=== PATIENT | male | born 1975 | race Caucasian/White ===

== ENCOUNTER 2017-03-06 11:27 | Emergency (ER) | payer MEDICAID ==
[~2017-03-06] VITALS: Ht 185.4 cm; Wt 117.0 kg
[~2017-03-06 11:27] MED LIST: BACTRIM DS 8001 TA1 PO; ETODOLAC400 MG PO; FLEXERIL10 MG PO; KEFLEX 500MG.500 MG PO; LORTAB 5/500 501 TAB PO; MEDROL 4MG. DOSE4 MG PO; MOTRIN600 MG PO; PERCOCET 325 MG1 TA3 PO; PERCOCET 5/3251 EACH PO; ULTRAM 50 MG TA50 MG PO; VICODIN 5/500 T1 TAB PO; VOLTAREN75 MG PO
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
--- OUTSIDE RECORDS SUMMARY | 2017-03-06 11:35 | External Medical Summary Rpt | CCD ---
Author Author , JAYLAN TIAN Address Unknown Phone [email or web address] Care Team Providers Care Machinist Brake Name Role Phone [employer], Unavailable Unavailable [employer] DIAGNOSTIC X-RAY Unavailable Unavailable PHYSICIA, DIAGNOSTIC X-RAY PHYSICIA NOMAN ARNDT Unavailable Unavailable [facility], Unavailable Unavailable [facility] Purpose Continuity of Care Document - 03-02-2014 through 2016 Problems Code Diagnosis DOS Provider Status F3289 OTHER 07-11-2016 [facility] SPECIFIED RG DEPRESSIVE EPISODES 7242 LUMBAGO 04-21-2014 DIAGNOSTIC X-RAY PHYSICIA 7862 COUGH 04-21-2014 DIAGNOSTIC X-RAY PHYSICIA 4659 ACUTE URIS 04-20-2014 [facility] UNSPECIFIED [facility] V016 CONTACT 03-02-2014 [facility] WITH OR DIAGNOSTICS EXPOSURE TO VENEREAL DISEASES
--- OUTSIDE RECORDS SUMMARY | 2017-03-06 11:35 | External Medical Summary Rpt | CCD ---
Author Author , JAYLAN TIAN Address Unknown Phone Care Team Providers Care Associate Genetics Professor Name Role Phone Chat& (ChatAnd), Unavailable Unavailable Chat& (ChatAnd) DIAGNOSTIC X-RAY Unavailable Unavailable PHYSICIA, DIAGNOSTIC X-RAY PHYSICIA NOMAN ARNDT Unavailable Unavailable [facility] NOMAN AR[facility], Unavailable Unavailable [facility] Purpose Continuity of Care Document - 03-02-2014 through 2016 Problems Code Diagnosis DOS Provider Status F3289 OTHER 07-11-2016 [facility] SPECIFIED RG DEPRESSIVE EPISODES 7242 LUMBAGO 04-21-2014 DIAGNOSTIC X-RAY PHYSICIA 7862 COUGH 04-21-2014 DIAGNOSTIC X-RAY PHYSICIA 4659 ACUTE URIS 04-20-2014 [facility] UNSPECIFIED [facility] V016 CONTACT 03-02-2014 [facility] WITH OR DIAGNOSTICS EXPOSURE TO VENEREAL DISEASES
--- OUTSIDE RECORDS SUMMARY | 2017-03-06 11:35 | External Medical Summary Rpt | CCD ---
Demographics Preferred Language Danish Marital Status Unknown Baptist Affiliation Unknown Race Unknown Ethnic Group Unknown Author Author , JAYLAN TIAN Address Unknown Phone Immunization No patient found.
--- OUTSIDE RECORDS SUMMARY | 2017-03-06 11:35 | External Medical Summary Rpt ---
Author Author JAYLAN Santos, JAYLAN Production Organization JAYLAN [employer] Address Unknown Phone Unavailable Results HEPATITIS C VIRUS SCREEN Observa Value Referen Units Interpr Notes Date tion ce etation Range IV DRUG YES No No No No Aug 08 USER informa informa informa informa 2017 tion in tion in tion in tion in 1:30 PM source source source source data data data data MAN WHO NO No No No No Aug 08 SLEEPS informa informa informa informa 2017 WITH tion in tion in tion in tion in 1:30 PM MEN source source source source data data data data HEPATIT No No No No Test Aug 08 IS C informa informa informa informa Perform 2017 VIRUS tion in tion in tion in tion in ed by 1:30 PM CONFIRM source source source source [facility] ATORY data data data data , TESTING [place], [place].Hepa titis RT-PCR, Quantit ative (Non-Gr aph) Results UnitsHe patitis C Quantit ation 235,000 IU/mLHC V log10 5.371 log10 IU/mLTe st Informa tion:Th e quantit ative range of the assay is 15 IU/mL to 100 Million IU/mL.M ETHOD OF ANALYSI S: HEP C VIRAL RNA QUALITA TIVE ANALYSI S BY TRANSCR IPTION- MEDIATE D AMPLIFI CATIONN ORMAL RANGE: NOT DETECTE D REFERRE REFERRE No No No No Aug 08 D TO D TO informa informa informa informa 2017 [facility] tion in tion in tion in tion in 1:30 PM FOR source source source source HEPATIT data data data data IS C CONFIRM ATION, SAB 08-16-16 DATE OF No No No No Aug 08 017 informa informa informa informa 2017 SPECIME tion in tion in tion in tion in 1:30 PM N source source source source REFRIGE data data data data RATION SPECIME PPT No No No No Aug 08 N TYPE informa informa informa informa 2017 tion in tion in tion in tion in 1:30 PM source source source source data data data data PREVIOU NO No No No No Aug 08 S informa informa informa informa 2017 POSITIV tion in tion in tion in tion in 1:30 PM E HEPC source source source source ANTIBOD data data data data Y TEST HEPATIT REPEATE No No No METHOD Jul 20 IS C DLY informa informa informa OF 2017 VIRUS REACTIV tion in tion in tion in ANALYSI 1:30 PM SCREEN E, source source source S: CONFIRM data data data EIANORM ATION AL TESTING RANGE: NON REQUIRE REACTIV D E\.br\T his report contain s patient informa tion that must be protect ed in accorda nce with the Health Insuran ce Portabi lity and Account ability Act. HEPATITIS C VIRUS SCREEN Observa Value Referen Units Interpr Notes Date tion ce etation Range IV DRUG YES No No No No Aug 08 USER informa informa informa informa 2017 tion in tion in tion in tion in 1:30 PM source source source source data data data data MAN WHO NO No No No No Aug 08 SLEEPS informa informa informa informa 2017 WITH tion in tion in tion in tion in 1:30 PM MEN source source source source data data data data HEPATIT Pending No No No No Aug 08 IS C informa informa informa informa 2017 VIRUS tion in tion in tion in tion in 1:30 PM CONFIRM source source source source ATORY data data data data TESTING REFERRE REFERRE No No No No Aug 08 D TO D TO informa informa informa informa 2017 [facility] tion in tion in tion in tion in 1:30 PM FOR source source source source HEPATIT data data data data IS C CONFIRM ATION, SAB 08-16-16 DATE OF No No No No Aug 08 017 informa informa informa informa 2017 SPECIME tion in tion in tion in tion in 1:30 PM N source source source source REFRIGE data data data data RATION SPECIME PPT No No No No Aug 08 N TYPE informa informa informa informa 2017 tion in tion in tion in tion in 1:30 PM source source source source data data data data PREVIOU NO No No No No Apr 20 S informa informa informa informa 2017 POSITIV tion in tion in tion in tion in 1:30 PM E HEPC source source source source ANTIBOD data data data data Y TEST HEPATIT REPEATE No No No METHOD Apr 20 IS C DLY informa informa informa OF 2017 VIRUS REACTIV tion in tion in tion in ANALYSI 1:30 PM SCREEN E, source source source S: CONFIRM data data data EIANORM ATION AL TESTING RANGE: NON REQUIRE REACTIV D E\.br\T his report contain s patient informa tion that must be protect ed in accorda nce with the Health Insuran ce Portabi lity and Account ability Act. HEPATITIS C VIRUS SCREEN Observa Value Referen Units Interpr Notes Date tion ce etation Range IV DRUG YES No No No No Aug 08 USER informa informa informa informa 2017 tion in tion in tion in tion in 1:30 PM source source source source data data data data MAN WHO NO No No No No Jul 20 SLEEPS informa informa informa informa 2017 WITH tion in tion in tion in tion in 1:30 PM MEN source source source source data data data data HEPATIT Pending No No No No Aug 08 IS C informa informa informa informa 2017 VIRUS tion in tion in tion in tion in 1:30 PM CONFIRM source source source source ATORY data data data data TESTING REFERRE REFERRE No No No No Jul 20 D TO D TO informa informa informa informa 2017 [facility] tion in tion in tion in tion in 1:30 PM FOR source source source source HEPATIT data data data data IS C CONFIRM ATION, SAB 08-16-16 DATE OF No No No No Aug 08 017 informa informa informa informa 2017 SPECIME tion in tion in tion in tion in 1:30 PM N source source source source REFRIGE data data data data RATION SPECIME PPT No No No No Jul 20 N TYPE informa informa informa informa 2017 tion in tion in tion in tion in 1:30 PM source source source source data data data data PREVIOU NO No No No No Aug 08 S informa informa informa informa 2017 POSITIV tion in tion in tion in tion in 1:30 PM E HEPC source source source source ANTIBOD data data data data Y TEST HEPATIT REPEATE No No No METHOD Jul 20 IS C DLY informa informa informa OF 2017 VIRUS REACTIV tion in tion in tion in ANALYSI 1:30 PM SCREEN E, source source source S: CONFIRM data data data EIANORM ATION AL TESTING RANGE: NON REQUIRE REACTIV D E\.br\T his report contain s patient informa tion that must be protect ed in accorda nce with the Health Insuran ce Portabi lity and Account ability Act. HEPATITIS C VIRUS SCREEN Observa Value Referen Units Interpr Notes Date tion ce etation Range IV DRUG YES No No No No Aug 08 USER informa informa informa informa 2017 tion in tion in tion in tion in 1:30 PM source source source source data data data data MAN WHO NO No No No No Aug 08 SLEEPS informa informa informa informa 2017 WITH tion in tion in tion in tion in 1:30 PM MEN source source source source data data data data HEPATIT Pending No No No No Aug 08 IS C informa informa informa informa 2017 VIRUS tion in tion in tion in tion in 1:30 PM CONFIRM source source source source ATORY data data data data TESTING REFERRE REFERRE No No No No Aug 08 D TO D TO informa informa informa informa 2017 [facility] tion in tion in tion in tion in 1:30 PM FOR source source source source HEPATIT data data data data IS C CONFIRM ATION, SAB 08-16-16 DATE OF No No No No Aug 08 017 informa informa informa informa 2017 SPECIME tion in tion in tion in tion in 1:30 PM N source source source source REFRIGE data data data data RATION SPECIME PPT No No No No Aug 08 N TYPE informa informa informa informa 2017 tion in tion in tion in tion in 1:30 PM source source source source data data data data PREVIOU NO No No No No Aug 08 S informa informa informa informa 2017 POSITIV tion in tion in tion in tion in 1:30 PM E HEPC source source source source ANTIBOD data data data data Y TEST HEPATIT REPEATE No No No METHOD Jul 20 IS C DLY informa informa informa OF 2017 VIRUS REACTIV tion in tion in tion in ANALYSI 1:30 PM SCREEN E, source source source S: CONFIRM data data data EIANORM ATION AL TESTING RANGE: NON REQUIRE REACTIV D E\.br\T his report contain s patient informa tion that must be protect ed in [facility] with the Health Ins[facility] [employer] and Account ability Act. HEPATITIS C VIRUS SCREEN Observa Value Referen Units Interpr Notes Date tion ce etation Range IV DRUG YES No No No No Aug 08 USER informa informa informa informa 2017 tion in tion in tion in tion in 1:30 PM source source source source data data data data MAN WHO NO No No No No Aug 08 SLEEPS informa informa informa informa 2017 WITH tion in tion in tion in tion in 1:30 PM MEN source source source source data data data data DATE OF No No No No Aug 08 017 informa informa informa informa 2017 SPECIME tion in tion in tion in tion in 1:30 PM N source source source source REFRIGE data data data data RATION SPECIME PPT No No No No Aug 08 N TYPE informa informa informa informa 2017 tion in tion in tion in tion in 1:30 PM source source source source data data data data PREVIOU NO No No No No Aug 08 S informa informa informa informa 2017 POSITIV tion in tion in tion in tion in 1:30 PM E HEPC source source source source ANTIBOD data data data data Y TEST HEPATIT REPEATE No No No METHOD Jul 20 IS C DLY informa informa informa OF 2017 VIRUS REACTIV tion in tion in tion in ANALYSI 1:30 PM SCREEN E, source source source S: CONFIRM data data data EIANORM ATION AL TESTING RANGE: NON REQUIRE REACTIV D E\.br\T his report contain s patient informa tion that must be protect ed [facility] with the Health Ins[facility] lity and Account ability Act. HEPATITIS C VIRUS SCREEN Observa Value Referen Units Interpr Notes Date tion ce etation Range IV DRUG YES No No No No Aug 08 USER informa informa informa informa 2017 tion in tion in tion in tion in 1:30 PM source source source source data data data data MAN WHO NO No No No No Aug 08 SLEEPS informa informa informa informa 2017 WITH tion in tion in tion in tion in 1:30 PM MEN source source source source data data data data DATE OF No No No No Aug 08 017 informa informa informa informa 2017 SPECIME tion in tion in tion in tion in 1:30 PM N source source source source REFRIGE data data data data RATION SPECIME PPT No No No No Aug 08 N TYPE informa informa informa informa 2017 tion in tion in tion in tion in 1:30 PM source source source source data data data data PREVIOU NO No No No No Aug 08 S informa informa informa informa 2017 POSITIV tion in tion in tion in tion in 1:30 PM E [facility]PC source source source source ANTIBOD data data data data Y TEST HEPATIT Pending No No No \.br\Aug 08 IS C informa informa informa is 2017 VIRUS tion in tion in tion in report 1:30 PM SCREEN source source source contain data data data s patient informa tion that must be protect ed in accorda nce with the Health Insuran ce Portabi lity and Account ability Act.
--- OUTSIDE RECORDS SUMMARY | 2017-03-06 11:35 | External Medical Summary Rpt | CCD ---
Demographics Preferred Language Moroccan Marital Status Unknown Anglican Affiliation Unknown Race Unknown Ethnic Group Unknown Author Author , JAYLAN TIAN Address Unknown Phone Immunization No patient found.
--- OUTSIDE RECORDS SUMMARY | 2017-03-06 11:35 | External Medical Summary Rpt | CCD ---
Author Author , JAYLAN TIAN Address Unknown Phone [email or web address] Care Team Providers Care Bowstring Maker Name Role Phone Dennys Aldana MD, Unavailable Unavailable Dennys Aldana MD [email or web address] (Inspect Manager), Unavailable Unavailable [employer] (Inspect Manager) DIAGNOSTIC X-RAY Unavailable Unavailable PHYSICIA, DIAGNOSTIC X-RAY [...] VENEREAL DISEASES 682.3 682.3 05-13-2013 Vasile CELLULITIS [facility] E86.0 DEHYDRATION M75.41 IMPINGEMENT SYNDROME OF [...] TALAT Felipe (ER) 4 11:53 4 13:18 [facility] [place] [facility] TALAT Aldana MD (ER) 4 12:08 4 13:12 [facility]
--- OUTSIDE RECORDS SUMMARY | 2017-03-06 11:35 | External Medical Summary Rpt ---
[...] ATORY data data data data , TESTING [place], [place].Hepa titis RT-PCR, Quantit ative (Non-Gr aph) [...] tion that must be protect ed in [facility] with the Health Insuran [facility] [employer] and Account ability Act. HEPATITIS C VIRUS [...] tion that must be protect ed in [facility] with the Health Ins[facility] lity and Account ability Act. HEPATITIS C [...]
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
[2017-03-06] MEDS ORDERED: BENZONATATE200 MG PO (11:59)
[2017-03-06] MEDS ORDERED: PREDNISONE 20MG20 MG PO (11:59)
[2017-03-06] MEDS ORDERED: ZITHROMAX Z PA250 MG PO (11:59)
[2017-03-06] MEDS ORDERED: PROVENTIL0.09 MG/A1 IH (11:59)
[2017-03-06 12:00] VITALS: BP 130/96
== END 2017-03-06 12:01 | disposition home or self-care (01) ==
LOC: UTC 11:27
DX: J20.9 Acute bronchitis, unspecified (principal); I20.8 Other forms of angina pectoris; Z88.6 Allergy status to analgesic agent; F17.210 Nicotine dependence, cigarettes, uncomplicated